=== PATIENT | male | born 2000 | race Caucasian/White ===

== ENCOUNTER 2018-08-05 01:14 | Inpatient (IN) | payer SELFPAY ==
[~2018-08-05] VITALS: Ht 172.7 cm; Wt 72.6 kg
[2018-08-05] VITALS (19 sets, daily range): BP systolic 83–128; BP diastolic 49–80
[2018-08-05] MEDS ORDERED: PROPOFOL 50 ML IV ONE ×4 (01:21→02:45)
[2018-08-05] MEDS: PROPOFOL 100 ML IV PRN ×3 (01:39→05:43)
[2018-08-05] MEDS ORDERED: ONDANSETRON PF 4 MG/2 ML VIAL. IV ONE (01:45)
[2018-08-05] MEDS ORDERED: IV NORMAL SALINE 1000ML BAG 1,000 ML IV ONE (01:45)
[2018-08-05 01:57] LABS: BASO # 0.1 x10^3/uL (0.0-0.2); BASO % 1 % (0-3); EOS # 0.1 x10^3/uL (0.0-0.7); EOS % 1 % (0-3); HEMATOCRIT 45.4 % (39.0-53.0); HEMOGLOBIN 15.8 g/dL (13.0-17.5); LYMPH # 2.1 x10^3/uL (1.0-4.8); LYMPH % 26 % (24-48); MEAN CORPUSCULAR HEMOGLOBIN 33 pg (25-35); MEAN CORPUSCULAR HGB CONC 35 g/dL (31-37); MEAN CORPUSCULAR VOLUME 94 fL (79-100); MONO # 0.5 x10^3/uL (0.0-1.1); MONO % 6 % (0-9); NEUT # 5.5 x10^3uL (1.8-7.7); NEUT % 66 % (31-73); PLATELET COUNT 315 x10^3/uL (140-400); RED BLOOD COUNT 4.84 x10^6/uL (4.30-5.70); RED CELL DISTRIBUTION WIDTH 12.7 % (11.5-14.5); WHITE BLOOD COUNT 8.2 x10^3/uL (4.0-11.0)
[2018-08-05] MEDS ORDERED: SUCCINYLCHOLINE 200 MG/10 ML VIAL. ONE (01:58)
[2018-08-05 02:15] LABS: BASE EXCESS ABG -7 mmol/L (-3-3); HCO3 ABG 19 mmol/L (21-28); PCO2 ABG 40 mmHg (35-46); PO2 ABG 150 mmHg (85-108); SAT O2 ABG 98 % (92-99)
[2018-08-05 02:16] LABS: FIO2 ABG 30
[2018-08-05] MEDS: IV NORMAL SALINE 1000ML BAG 1,000 ML IV SCH ×2 (02:40→08:07)
[2018-08-05 02:57] LABS: BARBITURATES NEG (NEG); BENZODIAZEPINES NEG (NEG); CANNABINOIDS NEG (NEG); COCAINE NEG (NEG); METHADONE NEG (NEG); OPIATES NEG (NEG); PHENCYCLIDINE NEG (NEG)
[2018-08-05 02:58] LABS: AMPHETAMINE/METHAMPHETAMINE NEG (NEG)
[2018-08-05] MEDS ORDERED: fentaNYL PF VIAL 100 MCG/2 ML VIAL IV PRN (03:00)
--- NOTE | 2018-08-05 03:28 | PHYS DOC ---
Past Medical History Past Medical History: Unknown Past Surgical History: Other Additional Past Surgical Histo: Unable to Assess Alcohol Use: Heavy Drug Use: Other Social History Narrative: Unknown drug use Adult General Chief Complaint Chief Complaint: ALCOHOL INTOXICATION HPI HPI Patient is a 18 year old male with resents with double consciousness and acute alcohol intoxication after drinking an unknown but large amount of alcohol earlier this evening. EMS was contacted by the patient's friend. GCS 6 on EMS arrival. GCS 6 on ED arrival. No history of trauma, seizure. No reported vomiting, aspiration episode. No other symptoms or complaints reported. History is limited to the patient's state. Patient unable to protect airway. Decision made to the patient shortly after ED arrival. [] Review of Systems Review of Systems ROS as per HPI All other systems were reviewed and found to be within normal limits, except as documented in this note. Current Medications Current Medications Current Medications Medications (Trade) Dose Ordered Sig/Aspen Start Time Stop Time Status Last Admin Dose Admin Propofol 50 ml @ As Directed STK-MED ONCE 08/05/18 01:21 08/05/18 01:22 DC Physical Exam Physical Exam Constitutional: GCS 6. E+1, V+1, M+4 [] HENT: Normocephalic, atraumatic, bilateral external ears normal, oropharynx moist, no oral exudates, nose normal. [] Eyes: PERRL, conjunctiva Injected. [] Neck: Normal range of motion, no midline bruising or step-off.. [] Cardiovascular:Heart rate regular rhythm, no murmur [] Lungs & Thorax: Bilateral breath sounds clear to auscultation [] Abdomen: Bowel sounds normal, soft. [] Skin: Warm, dry, no erythema. [] Extremities: No tenderness, no edema. [] Neurologic: GCS 6, withdraws drto pain.[] Current Patient Data Vital Signs Vital Signs Date Time Temp Pulse Resp B/P (MAP) Pulse Ox O2 Delivery O2 Flow Rate FiO2 08/05/18 01:14 98.4 100 10 116/68 (84) 98 Room Air 98.4 EKG EKG [EKG: reviewed] Radiology/Procedures Radiology/Procedures [CT head: pending ] Course & Med Decision Making Course & Med Decision Making Pertinent Labs and Imaging studies reviewed. (See chart for details) [Patient intubated shortly after ED arrival. Presentation most consistent with acute persistent/respiratory depression secondary to alcohol intoxication. Patient intubated for airway protection. ] Dragon Disclaimer Dragon Disclaimer This electronic medical record was generated, in whole or in part, using a voice recognition dictation system. Departure Departure Impression: Primary Impression: Alcohol intoxication Additional Impression: Altered mental status Disposition: ADMITTED INPATIENT Condition: STABLE Referrals: NO PCP (PCP) Intubation Procedure Intubation Procedure Intub Indication: Respiratory failure Consent: Unable to give consent due to emergent nature. Medications Used: see nursing note Procedure: The patient was placed in the appropriate position. Intubation was performed via video assisted endotracheal tube placement. ET secured at 22 cm at lips. Initial confirmation of placement included bilateral breath sounds, tube fogging, adequate chest rise, adequate pulse oximetry reading. A chest x-ray to verify correct placement of the tube showed appropriate tube position. Tube advanced 2 cm. . The patient tolerated the procedure well. Complications: none. Problem Qualifiers SARATH SOLORZANO DO Aug 05, 2018 03:28
[2018-08-05] MEDS ORDERED: PROPOFOL 10 MG/ML (20ML) VIAL. IV ONE (03:30)
[2018-08-05] MEDS ORDERED: SUCCINYLCHOLINE 200 MG/10 ML VIAL. IV ONE (03:30)
--- NOTE | 2018-08-05 07:01 | EKG ---
[facility] [address] [place] [address] Test Date: 2018-08-05 Test Time: 02:40:45 Pat Name: YASMIN RAE Department: Room: Gender: M Manifest Clerk: : 2000 Requested By: SARATH SOLORZANO Order Number: [id number] Reading MD: Measurements Intervals [place] Rate: 70 P: 60 MI: 142 QRS: 39 QRSD: 90 T: 21 QT: 380 QTc: 413 Interpretive Statements SINUS RHYTHM NORMAL ECG No previous ECG available for comparison
--- NOTE | 2018-08-05 08:28 | RAD ---
EXAM: CHEST 1 VIEW. HISTORY: Intubated, respiratory failure. COMPARISON: 10/25/2004. FINDINGS: A frontal view of the chest is obtained. An endotracheal tube has its tip 4 cm above the [place]. A nasogastric tube has its tip at the gastroesophageal junction. Recommend advancement by 10 cm. There are no confluent infiltrates. There is no pneumothorax or pleural effusion. The heart is not enlarged. There is a moderate broad thoracic dextrocurvature. IMPRESSION: 1. No confluent infiltrates. 2. Recommend advancement of the nasogastric tube by 10 cm. Electronically signed by: Sallie Hodges MD (08/05/2018 8:25 AM) [facility]
[2018-08-05 08:39] LABS: BASE EXCESS ABG -2 mmol/L (-3-3); HCO3 ABG 21 mmol/L (21-28); PCO2 ABG 33 mmHg (35-46); PO2 ABG 146 mmHg (85-108); SAT O2 ABG 98 % (92-99)
[2018-08-05 08:40] LABS: FIO2 ABG 30
--- NOTE | 2018-08-05 08:57 | PDOC1 ---
History and Physical Date of Admission Date of Admission DATE: 08/05/18 TIME: 08:54 Source Source: Unable to obtain due to History of Present Illness History of Present Illness Patient is a 18 year old male with resents with double consciousness and acute alcohol intoxication after drinking an unknown but large amount of alcohol earlier this evening. EMS was contacted by the patient's friend. GCS 6 on EMS arrival. GCS 6 on ED arrival. No history of trauma, seizure. No reported vomiting, aspiration episode. No other symptoms or complaints reported. History is limited to the patient's state. Past Medical History Past Medical History unable, intubated Social History ALCOHOL: other (binge) Current Medications Current Medications Current Medications Propofol 50 ml @ As Directed STK-MED ONCE IV ; Start 08/05/18 at 01:21; Stop 08/05/18 at 01:22; Status DC Sodium Chloride 1,000 ml @ 1,000 mls/hr 1X ONCE IV Last administered on 08/05/18at 01:33; Start 08/05/18 at 01:45; Stop 08/05/18 at 02:44; Status DC Ondansetron HCl (Zofran) 4 mg 1X ONCE IV Last administered on 08/05/18at 01:33; Start 08/05/18 at 01:45; Stop 08/05/18 at 01:52; Status DC Succinylcholine Chloride (Anectine) 200 mg STK-MED ONCE .ROUTE ; Start 08/05/18 at 01:58; Stop 08/05/18 at 01:59; Status DC Propofol 50 ml @ As Directed STK-MED ONCE IV ; Start 08/05/18 at 02:04; Stop 08/05/18 at 02:05; Status DC Sodium Chloride 1,000 ml @ 150 mls/hr Q6H40M IV Last administered on 08/05/18at 08:07; Start 08/05/18 at 03:00 Propofol 100 ml @ 0 mls/hr CONT PRN IV SEE PROTOCOL Last administered on 08/05/18at 05:43; Start 08/05/18 at 03:00 Fentanyl Citrate (Fentanyl 2ml Vial) 25 mcg PRN Q1HR PRN IV SEE COMMENTS; Start 08/05/18 at 03:00 Chlorhexidine Gluconate (Peridex) 15 ml BID MM ; Start 08/05/18 at 09:00 Propofol (Diprivan) 80 mg 1X ONCE IV Last administered on 08/05/18at 01:34; Start 08/05/18 at 03:30; Stop 08/05/18 at 03:34; Status DC Succinylcholine Chloride (Anectine) 80 mg 1X ONCE IV Last administered on 08/05/18at 01:35; Start 08/05/18 at 03:30; Stop 08/05/18 at 03:34; Status DC Propofol 50 ml @ 1.089 mls/ hr 1X ONCE IV Last administered on 08/05/18at 01:40; Start 08/05/18 at 01:40; Stop 08/06/18 at 23:34 Propofol 50 ml @ 1.089 mls/ hr 1X ONCE IV Last administered on 08/05/18at 02:45; Start 08/05/18 at 02:45; Stop 08/07/18 at 00:39 Allergies Allergies: Coded Allergies: No Known Drug Allergies (Unverified , 08/05/18) ROS Review of System unable, intubated Physical Exam Physical Exam bloody looking fluid for NG tube suction General: mild distress HEENT: Atraumatic, PERRLA Lungs: Clear to auscultation, Normal air movement Heart: S1S2 Abdomen: Normal bowel sounds, Soft Extremities: No cyanosis Skin: No rashes Vitals Vitals Vital Signs Date Time Temp Pulse Resp B/P (MAP) Pulse Ox O2 Delivery O2 Flow Rate FiO2 08/05/18 06:28 64 20 94/61 (72) 99 Ventilator 08/05/18 03:45 96.5 96.5 Labs Labs Laboratory Tests Test 08/05/18 01:45 08/05/18 02:14 08/05/18 02:40 08/05/18 08:30 White Blood Count 8.2 x10^3/uL (4.0-11.0) Red Blood Count 4.84 x10^6/uL (4.30-5.70) Hemoglobin 15.8 g/dL (13.0-17.5) Hematocrit 45.4 % (39.0-53.0) Mean Corpuscular Volume 94 fL (79-100) Mean Corpuscular Hemoglobin 33 pg (25-35) Mean Corpuscular Hemoglobin Concent 35 g/dL (31-37) Red Cell Distribution Width 12.7 % (11.5-14.5) Platelet Count 315 x10^3/uL (140-400) Neutrophils (%) (Auto) 66 % (31-73) Lymphocytes (%) (Auto) 26 % (24-48) Monocytes (%) (Auto) 6 % (0-9) Eosinophils (%) (Auto) 1 % (0-3) Basophils (%) (Auto) 1 % (0-3) Neutrophils # (Auto) 5.5 x10^3uL (1.8-7.7) Lymphocytes # (Auto) 2.1 x10^3/uL (1.0-4.8) Monocytes # (Auto) 0.5 x10^3/uL (0.0-1.1) Eosinophils # (Auto) 0.1 x10^3/uL (0.0-0.7) Basophils # (Auto) 0.1 x10^3/uL (0.0-0.2) Sodium Level 146 mmol/L (136-145) Potassium Level 3.4 mmol/L (3.5-5.1) Chloride Level 108 mmol/L (98-107) Carbon Dioxide Level 25 mmol/L (21-32) Anion Gap 13 (6-14) Blood Urea Nitrogen 11 mg/dL (8-26) Creatinine 0.9 mg/dL (0.7-1.3) Estimated GFR (Cockcroft-Gault) 107.6 Glucose Level 117 mg/dL (70-99) Calcium Level 9.4 mg/dL (8.5-10.1) Ethyl Alcohol Level 393 mg/dL (0-10) O2 Saturation 98 % (92-99) 98 % (92-99) Arterial Blood pH 7.31 (7.35-7.45) 7.43 (7.35-7.45) Arterial Blood pCO2 at Patient Temp 40 mmHg (35-46) 33 mmHg (35-46) Arterial Blood pO2 at Patient Temp 150 mmHg (85-108) 146 mmHg (85-108) Arterial Blood HCO3 19 mmol/L (21-28) 21 mmol/L (21-28) Arterial Blood Base Excess -7 mmol/L (-3-3) -2 mmol/L (-3-3) FiO2 30 30 Urine Opiates Screen Neg (NEG) Urine Methadone Screen Neg (NEG) Urine Barbiturates Neg (NEG) Urine Phencyclidine Screen Neg (NEG) Urine Amphetamine/Methamphetamine Neg (NEG) Urine Benzodiazepines Screen Neg (NEG) Urine Cocaine Screen Neg (NEG) Urine Cannabinoids Screen Neg (NEG) Urine Ethyl Alcohol Pos (NEG) Laboratory Tests Test 08/05/18 01:45 08/05/18 02:14 08/05/18 02:40 08/05/18 08:30 White Blood Count 8.2 x10^3/uL (4.0-11.0) Red Blood Count 4.84 x10^6/uL (4.30-5.70) Hemoglobin 15.8 g/dL (13.0-17.5) Hematocrit 45.4 % (39.0-53.0) Mean Corpuscular Volume 94 fL (79-100) Mean Corpuscular Hemoglobin 33 pg (25-35) Mean Corpuscular Hemoglobin Concent 35 g/dL (31-37) Red Cell Distribution Width 12.7 % (11.5-14.5) Platelet Count 315 x10^3/uL (140-400) Neutrophils (%) (Auto) 66 % (31-73) Lymphocytes (%) (Auto) 26 % (24-48) Monocytes (%) (Auto) 6 % (0-9) Eosinophils (%) (Auto) 1 % (0-3) Basophils (%) (Auto) 1 % (0-3) Neutrophils # (Auto) 5.5 x10^3uL (1.8-7.7) Lymphocytes # (Auto) 2.1 x10^3/uL (1.0-4.8) Monocytes # (Auto) 0.5 x10^3/uL (0.0-1.1) Eosinophils # (Auto) 0.1 x10^3/uL (0.0-0.7) Basophils # (Auto) 0.1 x10^3/uL (0.0-0.2) Sodium Level 146 mmol/L (136-145) Potassium Level 3.4 mmol/L (3.5-5.1) Chloride Level 108 mmol/L (98-107) Carbon Dioxide Level 25 mmol/L (21-32) Anion Gap 13 (6-14) Blood Urea Nitrogen 11 mg/dL (8-26) Creatinine 0.9 mg/dL (0.7-1.3) Estimated GFR (Cockcroft-Gault) 107.6 Glucose Level 117 mg/dL (70-99) Calcium Level 9.4 mg/dL (8.5-10.1) Ethyl Alcohol Level 393 mg/dL (0-10) O2 Saturation 98 % (92-99) 98 % (92-99) Arterial Blood pH 7.31 (7.35-7.45) 7.43 (7.35-7.45) Arterial Blood pCO2 at Patient Temp 40 mmHg (35-46) 33 mmHg (35-46) Arterial Blood pO2 at Patient Temp 150 mmHg (85-108) 146 mmHg (85-108) Arterial Blood HCO3 19 mmol/L (21-28) 21 mmol/L (21-28) Arterial Blood Base Excess -7 mmol/L (-3-3) -2 mmol/L (-3-3) FiO2 30 30 Urine Opiates Screen Neg (NEG) Urine Methadone Screen Neg (NEG) Urine Barbiturates Neg (NEG) Urine Phencyclidine Screen Neg (NEG) Urine Amphetamine/Methamphetamine Neg (NEG) Urine Benzodiazepines Screen Neg (NEG) Urine Cocaine Screen Neg (NEG) Urine Cannabinoids Screen Neg (NEG) Urine Ethyl Alcohol Pos (NEG) VTE Prophylaxis Ordered VTE Prophylaxis Devices: No VTE Pharmacological Prophylaxi: No Assessment/Plan Assessment/Plan acute EtOH intoxication toxic encephalopathy coma admitted ICU, intubated, < 30 min possible gastritits from EtOH, start pepcid try to extubate this AM BHUPINDER MICHAELS MD Aug 05, 2018 08:56
[2018-08-05] MEDS ORDERED: FAMOTIDINE 20 MG/2 ML VIAL IVP SCH (09:00)
[2018-08-05] MEDS ORDERED: CHLORHEXIDINE 0.12% 15 ML MOUTHWASH. MM SCH (09:00)
[2018-08-05 09:34] LABS: ALBUMIN 4.4 g/dL (3.4-5.0); ALBUMIN/GLOBULIN RATIO 1.2 (1.0-1.7); CALCIUM 9.4 mg/dL (8.5-10.1); CREATININE 0.9 mg/dL (0.7-1.3); GFR 107.6; TOTAL BILIRUBIN 0.4 mg/dL (0.2-1.0); TOTAL PROTEIN 8.1 g/dL (6.4-8.2)
[2018-08-05 09:36] LABS: POTASSIUM 3.4 mmol/L (3.5-5.1)
[2018-08-05 09:50] LABS: PROTHROMBIN TIME PATIENT 12.8 SEC (11.7-14.0)
[2018-08-05] MEDS ORDERED: POTASSIUM CHLORIDE 20 MEQ TABLET.ER. PO ONE (14:00)
--- NOTE | 2018-08-05 14:04 | PDOC ---
PULMONARY PROGRESS NOTES Vitals Vital Signs Date Time Temp Pulse Resp B/P (MAP) Pulse Ox O2 Delivery O2 Flow Rate FiO2 08/05/18 13:00 103 18 117/72 (87) 99 Ventilator 08/05/18 12:00 99.1 99.1 Labs Laboratory Tests Test 08/05/18 01:45 08/05/18 02:14 08/05/18 02:40 08/05/18 08:30 White Blood Count 8.2 x10^3/uL (4.0-11.0) Red Blood Count 4.84 x10^6/uL (4.30-5.70) Hemoglobin 15.8 g/dL (13.0-17.5) Hematocrit 45.4 % (39.0-53.0) Mean Corpuscular Volume 94 fL (79-100) Mean Corpuscular Hemoglobin 33 pg (25-35) Mean Corpuscular Hemoglobin Concent 35 g/dL (31-37) Red Cell Distribution Width 12.7 % (11.5-14.5) Platelet Count 315 x10^3/uL (140-400) Neutrophils (%) (Auto) 66 % (31-73) Lymphocytes (%) (Auto) 26 % (24-48) Monocytes (%) (Auto) 6 % (0-9) Eosinophils (%) (Auto) 1 % (0-3) Basophils (%) (Auto) 1 % (0-3) Neutrophils # (Auto) 5.5 x10^3uL (1.8-7.7) Lymphocytes # (Auto) 2.1 x10^3/uL (1.0-4.8) Monocytes # (Auto) 0.5 x10^3/uL (0.0-1.1) Eosinophils # (Auto) 0.1 x10^3/uL (0.0-0.7) Basophils # (Auto) 0.1 x10^3/uL (0.0-0.2) Prothrombin Time 12.8 SEC (11.7-14.0) Prothromb Time International Ratio 1.0 (0.8-1.1) Sodium Level 146 mmol/L (136-145) Potassium Level 3.4 mmol/L (3.5-5.1) Chloride Level 108 mmol/L (98-107) Carbon Dioxide Level 25 mmol/L (21-32) Anion Gap 13 (6-14) Blood Urea Nitrogen 11 mg/dL (8-26) Creatinine 0.9 mg/dL (0.7-1.3) Estimated GFR (Cockcroft-Gault) 107.6 BUN/Creatinine Ratio 12 (6-20) Glucose Level 117 mg/dL (70-99) Calcium Level 9.4 mg/dL (8.5-10.1) Magnesium Level 2.6 mg/dL (1.8-2.4) Total Bilirubin 0.4 mg/dL (0.2-1.0) Aspartate Amino Transf (AST/SGOT) 23 U/L (15-37) Alanine Aminotransferase (ALT/SGPT) 44 U/L (16-63) Alkaline Phosphatase 69 U/L (46-116) Total Protein 8.1 g/dL (6.4-8.2) Albumin 4.4 g/dL (3.4-5.0) Albumin/Globulin Ratio 1.2 (1.0-1.7) Ethyl Alcohol Level 393 mg/dL (0-10) O2 Saturation 98 % (92-99) 98 % (92-99) Arterial Blood pH 7.31 (7.35-7.45) 7.43 (7.35-7.45) Arterial Blood pCO2 at Patient Temp 40 mmHg (35-46) 33 mmHg (35-46) Arterial Blood pO2 at Patient Temp 150 mmHg (85-108) 146 mmHg (85-108) Arterial Blood HCO3 19 mmol/L (21-28) 21 mmol/L (21-28) Arterial Blood Base Excess -7 mmol/L (-3-3) -2 mmol/L (-3-3) FiO2 30 30 Urine Opiates Screen Neg (NEG) Urine Methadone Screen Neg (NEG) Urine Barbiturates Neg (NEG) Urine Phencyclidine Screen Neg (NEG) Urine Amphetamine/Methamphetamine Neg (NEG) Urine Benzodiazepines Screen Neg (NEG) Urine Cocaine Screen Neg (NEG) Urine Cannabinoids Screen Neg (NEG) Urine Ethyl Alcohol Pos (NEG) Test 08/05/18 10:20 Ethyl Alcohol Level 200 mg/dL (0-10) Laboratory Tests Test 08/05/18 01:45 08/05/18 02:14 08/05/18 02:40 08/05/18 08:30 White Blood Count 8.2 x10^3/uL (4.0-11.0) Red Blood Count 4.84 x10^6/uL (4.30-5.70) Hemoglobin 15.8 g/dL (13.0-17.5) Hematocrit 45.4 % (39.0-53.0) Mean Corpuscular Volume 94 fL (79-100) Mean Corpuscular Hemoglobin 33 pg (25-35) Mean Corpuscular Hemoglobin Concent 35 g/dL (31-37) Red Cell Distribution Width 12.7 % (11.5-14.5) Platelet Count 315 x10^3/uL (140-400) Neutrophils (%) (Auto) 66 % (31-73) Lymphocytes (%) (Auto) 26 % (24-48) Monocytes (%) (Auto) 6 % (0-9) Eosinophils (%) (Auto) 1 % (0-3) Basophils (%) (Auto) 1 % (0-3) Neutrophils # (Auto) 5.5 x10^3uL (1.8-7.7) Lymphocytes # (Auto) 2.1 x10^3/uL (1.0-4.8) Monocytes # (Auto) 0.5 x10^3/uL (0.0-1.1) Eosinophils # (Auto) 0.1 x10^3/uL (0.0-0.7) Basophils # (Auto) 0.1 x10^3/uL (0.0-0.2) Prothrombin Time 12.8 SEC (11.7-14.0) Prothromb Time International Ratio 1.0 (0.8-1.1) Sodium Level 146 mmol/L (136-145) Potassium Level 3.4 mmol/L (3.5-5.1) Chloride Level 108 mmol/L (98-107) Carbon Dioxide Level 25 mmol/L (21-32) Anion Gap 13 (6-14) Blood Urea Nitrogen 11 mg/dL (8-26) Creatinine 0.9 mg/dL (0.7-1.3) Estimated GFR (Cockcroft-Gault) 107.6 BUN/Creatinine Ratio 12 (6-20) Glucose Level 117 mg/dL (70-99) Calcium Level 9.4 mg/dL (8.5-10.1) Magnesium Level 2.6 mg/dL (1.8-2.4) Total Bilirubin 0.4 mg/dL (0.2-1.0) Aspartate Amino Transf (AST/SGOT) 23 U/L (15-37) Alanine Aminotransferase (ALT/SGPT) 44 U/L (16-63) Alkaline Phosphatase 69 U/L (46-116) Total Protein 8.1 g/dL (6.4-8.2) Albumin 4.4 g/dL (3.4-5.0) Albumin/Globulin Ratio 1.2 (1.0-1.7) Ethyl Alcohol Level 393 mg/dL (0-10) O2 Saturation 98 % (92-99) 98 % (92-99) Arterial Blood pH 7.31 (7.35-7.45) 7.43 (7.35-7.45) Arterial Blood pCO2 at Patient Temp 40 mmHg (35-46) 33 mmHg (35-46) Arterial Blood pO2 at Patient Temp 150 mmHg (85-108) 146 mmHg (85-108) Arterial Blood HCO3 19 mmol/L (21-28) 21 mmol/L (21-28) Arterial Blood Base Excess -7 mmol/L (-3-3) -2 mmol/L (-3-3) FiO2 30 30 Urine Opiates Screen Neg (NEG) Urine Methadone Screen Neg (NEG) Urine Barbiturates Neg (NEG) Urine Phencyclidine Screen Neg (NEG) Urine Amphetamine/Methamphetamine Neg (NEG) Urine Benzodiazepines Screen Neg (NEG) Urine Cocaine Screen Neg (NEG) Urine Cannabinoids Screen Neg (NEG) Urine Ethyl Alcohol Pos (NEG) Test 08/05/18 10:20 Ethyl Alcohol Level 200 mg/dL (0-10) Impression . FULL NOTE DICTATED CHAPITO MANDEL MD Aug 05, 2018 14:04
[2018-08-05] MEDS ORDERED: PHENOL ORAL SPRAY 177ML BOTTLE. PO PRN (14:15)
--- NOTE | 2018-08-05 14:49 | NUR ---
Patient extubated at 1330, placed on 2 lnc O2 sat 99%. At 1400 oxygen turned off. Patient ambulated to chair O2 sat 93%, friend at bedside. Will continue to monitor.
--- NOTE | 2018-08-05 15:00 | NUR ---
SS following for discharge planning. Pt is from home. SS was consulted to contact the PAT team due to alcohol intoxication. SS contacted the PAT team and made referral for evaluation and assessment. Pt's RN notified.
[2018-08-05] MEDS ORDERED: ONDANSETRON ODT 4 MG TAB.RAPDIS. PO ONE (17:15)
--- NOTE | 2018-08-05 17:39 | NUR ---
Discharge Note: [facility] Discharge instructions and discharge home medications reviewed with Patient and a copy given. All questions have been answered and understanding verbalized. The following instructions and handouts were given: alcohol intoxication Discontinued lines and drains: clean dry and intact. Patient discharged to home with self care via friend
--- NOTE | 2018-08-06 06:40 | CONS ---
DATE OF CONSULTATION: 08/05/2018 ATTENDING PHYSICIAN: Kirsten Canchola MD. REASON FOR CONSULTATION: The patient seen in pulmonary consultation at the request of Dr. Canchola for vent management. HISTORY OF PRESENT ILLNESS: The patient is a 18-year-old male that presented with acute alcohol intoxication unable to protect his airway. He was intubated. He has been in overnight. He has been hemodynamically stable. I was asked to manage his vent. The patient is currently awake, alert, following commands. He has been on 5 of pressure support and 5 of PEEP for well over one hour. He nods yes to having the ET tube removed from his airway. PAST MEDICAL AND PAST SURGICAL HISTORY: Unknown. ALLERGIES: No known drug allergies listed. REVIEW OF SYSTEMS: Unobtainable secondary to the patient's condition. PHYSICAL EXAMINATION: VITAL SIGNS: Stable. O2 saturation was greater than 92%. T-max is 99.1. HEENT: Eyes, the sclerae were nonicteric. NECK: Jugular venous distention was not elevated. No lymphadenopathy. CHEST: Full expansion. LUNGS: Adequate airway flow with no wheezes. CARDIOVASCULAR: Regular rate and rhythm with S1, S2, no S3. ABDOMEN: Soft, nontender, nondistended. EXTREMITIES: No clubbing, cyanosis or edema. NEUROLOGIC: The patient was awake, alert, moving all extremities and had a cough and gag. LABORATORY DATA: Arterial blood gas noted. White count was normal. Hemoglobin and hematocrit were noted. Electrolytes were noted. Potassium is slightly decreased. BUN and creatinine were normal. Magnesium was slightly elevated. Otherwise, other labs were totally normal. Toxicology screen was positive for ethyl alcohol, no other drugs. IMPRESSION: 1. Acute respiratory failure secondary to alcohol intoxication. 2. Alcohol intoxication. PLAN: The patient has been hemodynamically stable overnight. We will proceed with extubation. The case was discussed with the respiratory therapist. CHAPITO MANDEL MD DR: WARNER/tylor JOB#: [id number] / [id number]
== END 2018-08-05 17:41 | disposition home or self-care (01) | DRG 208 ==
LOC: ER 01:14 → 1 WEST ICU 01:30
PROVIDERS: ADMIT Internal Medicine; ATTEND Internal Medicine
PROC: 5A1935Z Respiratory Ventilation, Less than 24 Consecutive Hours (ICD-10-PCS; principal; 2018-08-05)
PROC: 0BH17EZ Insertion of Endotracheal Airway into Trachea, Via Natural or Artificial Opening (ICD-10-PCS; 2018-08-05)
DX: J96.00 Acute respiratory failure, unspecified whether with hypoxia or hypercapnia (principal); G92 Toxic encephalopathy; F10.129 Alcohol abuse with intoxication, unspecified
CPT/HCPCS: 31500; 36415; 36600; 51702; 71045; 80053; 80307; 82805; 83735; 85025; 85610; 87641; 93005; 94003; 96374; G0480; J0330; J2405; J2704; J3490; J7030; 99285-25

== ENCOUNTER 2020-08-03 18:20 | Emergency (ER) | payer BC ==
[~2020-08-03] VITALS: Ht 170.2 cm; Wt 63.0 kg
--- NOTE | 2020-08-03 19:04 | PHYS DOC ---
Past Medical History Past Medical History: Depression, Unknown, Other Additional Past Medical Histor: SCOLIOSIS Past Surgical History: No Surgical History, Other Smoking Status: Never Smoker Alcohol Use: Occasionally Drug Use: Marijuana, Other General Adult EDM: Chief Complaint: SUICDAL IDEATION HPI: HPI: 20-year-old male presents with report of progressive depression over the last several months. Patient reports over the last 2 weeks he has had multiple thoughts of wanting to hurt himself. Patient reports he did take "2 bottles of sleeping pills" in attempt to kill himself a few weeks ago. Patient reports he awoke only feeling very sleepy. Patient also reports recently taking 2 bottles of prescribed "Prozac "an attempt to harm himself as well as yesterday taking "4 tablespoons of salt "also in attempt to harm himself. Patient reports he vomited and was unable to proceed with either attempt. Patient reports he talked to his therapist in [place] via teleconsult and was advised to present directly to the emergency department for help. Patient denies history of inpatient psychiatric admission. Patient reports increased life stressors that has caused him to have worsening depression. Patient does report he abuses marijuana but has not done so in the last 2 weeks. Patient denies any co- ingestants. Denies any recent use of alcohol. Review of Systems: Review of Systems: Constitutional: Denies fever or chills Eyes: Denies redness or eye pain HENT: Denies nasal congestion or sore throat Respiratory: Denies cough or shortness of breath Cardiovascular: Denies chest pain or palpitations GI: Denies abdominal pain, nausea, or vomiting : Denies dysuria or hematuria Musculoskeletal: Denies back pain or joint pain Integument: Denies rash or skin lesions Neurologic: Denies headache, focal weakness or sensory changes Complete systems were reviewed and found to be within normal limits, except as documented in this note. Heart Score: C/O Chest Pain: N/A Allergies: Allergies: Allergies Coded Allergies Type Severity Reaction Last Updated Verified No Known Drug Allergies 08/05/18 No Physical Exam: PE: Constitutional: Well developed, well nourished, no acute distress, non-toxic appearance HENT: Normocephalic, atraumatic Eyes: PERRL, EOMI, conjunctiva normal, no discharge, no nystagmus Neck: Normal range of motion, no tenderness, supple Lungs & Thorax: No respiratory distress, equal chest rise and fall Abdomen: Soft, no tenderness Skin: Warm, dry, no erythema, no rash Extremities: No tenderness, ROM intact, no edema Neurologic: Alert and oriented X 3, normal motor function, normal sensory function, no focal deficits noted Psychologic: Affect normal, judgment abnormal, reports suicidal ideation and history of multiple recent failed attempts Current Patient Data: Vital Signs: Vital Signs Date Time Temp Pulse Resp B/P (MAP) Pulse Ox O2 Delivery O2 Flow Rate FiO2 08/03/20 18:36 98.2 81 12 131/85 (100) 98 Room Air 98.2 EKG: EKG: @1911 NSR at 65bpm, NO ST elevation, QRS 84ms, QT/QTc 368/383ms, t wave inversion III Radiology/Procedures: Radiology/Procedures: [] Course & Med Decision Making: Course & Med Decision Making Pertinent Lab studies reviewed. (See chart for details) Patient presents with progressive depression and suicidality. History of recent failed attempts. Patient neurologically intact. Labs obtained and posted to chart. EKG stable. Patient medically cleared for psychiatric assessment. PAT consult performed. [place] (PAT) evaluated patient with recommendation of need for inpatient psychiatric admission. Available in patient facilities requiring PCR Covid testing. Rapid COVID negative. [facility] accepting of transfer for inpatient psychiatric admission. Dr. Juarez Sylvester accepting. Christopher Disclaimer: Christopher Disclaimer: This electronic medical record was generated, in whole or in part, using a voice recognition dictation system. Departure Departure Impression: Primary Impression: Suicidal ideation Disposition: [address] [place] [address] ([facility]) Condition: STABLE Referrals: NO PCP (PCP) Additional Instructions: [facility]- Dr. Juarez Sylvester (psych) accepting. Scripts No Active Prescriptions or Reported Meds JOSE ALEXANDER DO Aug 03, 2020 19:04
[2020-08-03 19:30] LABS: BASO # 0.1 x10^3/uL (0.0-0.2); BASO % 1 % (0-3); EOS % 1 % (0-3); HEMATOCRIT 45.5 % (39.0-53.0); LYMPH # 2.3 x10^3/uL (1.0-4.8); LYMPH % 27 % (24-48); MEAN CORPUSCULAR HEMOGLOBIN 32 pg (25-35); MEAN CORPUSCULAR HGB CONC 35 g/dL (31-37); MEAN CORPUSCULAR VOLUME 91 fL (79-100); MONO # 0.5 x10^3/uL (0.0-1.1); MONO % 6 % (0-9); NEUT # 5.7 x10^3/uL (1.8-7.7); NEUT % 66 % (31-73); PLATELET COUNT 304 x10^3/uL (140-400); RED BLOOD COUNT 5.01 x10^6/uL (4.30-5.70); RED CELL DISTRIBUTION WIDTH 12.4 % (11.5-14.5); WHITE BLOOD COUNT 8.7 x10^3/uL (4.0-11.0)
[2020-08-03 19:39] LABS: CALCIUM 9.7 mg/dL (8.5-10.1); GFR 93.4; POTASSIUM 4.4 mmol/L (3.5-5.1)
[2020-08-03 19:43] LABS: ACETAMIN < 2.0 mcg/ml (10-30); SALIC < 2.8 mg/dL (2.8-20.0)
[2020-08-03 19:45] LABS: ALBUMIN 5.1 g/dL (3.4-5.0); ALBUMIN/GLOBULIN RATIO 1.5 (1.0-1.7); TOTAL BILIRUBIN 0.3 mg/dL (0.2-1.0); TOTAL PROTEIN 8.6 g/dL (6.4-8.2)
[2020-08-03 20:19] LABS: BILIRUBIN,URINE NEGATIVE (NEG); CLARITY,URINE CLEAR; COLOR,URINE YELLOW; NITRITE,URINE NEGATIVE (NEG); PROTEIN,URINE NEGATIVE (NEG-TRACE); UROBILINOGEN,URINE 0.2 mg/dL (0.2 mg/dL)
[2020-08-03 20:25] LABS: BACTERIA,URINE 0 /HPF (0-FEW); RBC,URINE RARE /HPF (0-2); WBC,URINE 0 /HPF (0-4)
[2020-08-03 20:26] LABS: AMPHETAMINE/METHAMPHETAMINE NEG (NEG); BARBITURATES NEG (NEG); BENZODIAZEPINES NEG (NEG); CANNABINOIDS POS (NEG); COCAINE NEG (NEG); METHADONE NEG (NEG); OPIATES NEG (NEG); PHENCYCLIDINE NEG (NEG)
--- NOTE | 2020-08-03 23:56 | EKG ---
[facility] [address] [place] [address] Test Date: 2020-08-03 Test Time: 19:11:59 Pat Name: YASMIN RAE Department: Room: Gender: M Food Safety Technician: : 2000 Requested By: JOSE ALEXANDER Order Number: [id number] Reading MD: Measurements Intervals Luck Rate: 65 P: 59 WI: 142 QRS: 34 QRSD: 84 T: 22 QT: 368 QTc: 383 Interpretive Statements SINUS RHYTHM NO SPECIFIC ECG ABNORMALITIES RI6.01 No previous ECG available for comparison
[2020-08-04 01:45] VITALS: BP 133/71
== END 2020-08-04 02:22 ==
LOC: ER 18:20
DX: R45.851 Suicidal ideations (principal); F32.9 Major depressive disorder, single episode, unspecified; F12.10 Cannabis abuse, uncomplicated; Z91.5 Personal history of self-harm; Z20.822 Contact with and (suspected) exposure to COVID-19
CPT/HCPCS: 36415; 80053; 80307; 80329; 81001; 83735; 85025; 87426; 93005; 99285; G0480; U0003; U0005